=== PATIENT | female | born 1990 | race Caucasian/White ===

== ENCOUNTER 2016-11-07 10:50 | Emergency (ER) | payer MEDICAID ==
[2016-11-07 13:16] VITALS: BP 109/68
== END 2016-11-07 13:16 | disposition home or self-care (01) ==
LOC: ED 10:50
DX: B34.9 Viral infection, unspecified (principal)
CPT/HCPCS: 87804; J1885; Q0162

== ENCOUNTER 2018-01-01 20:22 | Emergency (ER) | payer MEDICAID ==
[~2018-01-01] VITALS: Ht 167.6 cm; Wt 72.6 kg
[2018-01-01 20:26] VITALS: Ht 167.6 cm; Wt 72.6 kg
[2018-01-01 23:03] VITALS: BP 122/79
== END 2018-01-01 23:03 | disposition home or self-care (01) ==
LOC: ED 20:22
DX: S13.4XXA Sprain of ligaments of cervical spine, initial encounter (principal); R07.89 Other chest pain; M25.512 Pain in left shoulder; M25.522 Pain in left elbow; M25.532 Pain in left wrist; V43.52XA Car driver injured in collision with other type car in traffic accident, initial encounter; Y93.I9 Activity, other involving external motion; Y92.488 Other paved roadways as the place of occurrence of the external cause; Y99.8 Other external cause status
CPT/HCPCS: J1885